=== PATIENT | female | born 1980 | race Caucasian/White ===

== ENCOUNTER 2017-03-16 12:00 | Emergency (ER) | payer BC ==
[2017-03-16] MEDS ORDERED: Albuterol/Ipratropium 3.0-0.5 MG/3 ML Neb Soln NEB ONE (12:47)
--- NOTE | 2017-03-16 12:48 | EDM.PDOC ---
ED HPI GENERAL MEDICAL PROBLEM - General Chief Complaint: Asthma Stated Complaint: ASTHMA ISSUES Time Seen by Provider: 03/16/17 12:17 Source of Information: Reports: Patient, Old Records (recent clinic visit) History Limitations: Reports: No Limitations - History of Present Illness INITIAL COMMENTS - FREE TEXT/NARRATIVE: 36-year-old female presents for evaluation treatment of asthma exacerbation. Patient reports that she's been ill with cough and cold-like symptoms for the last week. Current symptoms include a hoarse voice, nonproductive cough, shortness of breath, wheezing and a runny nose. She states that she saw her primary care provider on Tuesday. She was started on Brio and a steroid. She also has been using albuterol nebs at home. She reports that her symptoms are persisting despite these treatments. Chest Pain Score (Numeric/FACES): 3 - Related Data Allergies Allergy/AdvReac Type Severity Reaction Status Date / Time amoxicillin Allergy Cannot Verified 03/16/17 12:12 Remember tramadol Allergy Confusion Verified 03/16/17 12:12 Home Meds: Home Meds Albuterol [Proventil HFA] 1 inh INH ASDIRECTED 03/16/17 [History] Azithromycin [IJD: Azithromycin] 250 mg PO DAILY #6 tab 03/16/17 [Rx] Celecoxib 1 tab PO DAILY 03/16/17 [History] Prednisone [IJD: predniSONE] 20 mg PO WITHBREAKFAST #4 tab 03/16/17 [Rx] Past Medical History Respiratory History: Reports: Asthma Gastrointestinal History: Reports: Other (See Below) Other Gastrointestinal History: Crohns disease - Past Surgical History GI Surgical History: Reports: Colonoscopy Social & Family History - Tobacco Use Smoking Status *Q: Never Smoker - Caffeine Use Caffeine Use: Reports: Coffee, Soda, Tea - Recreational Drug Use Recreational Drug Use: No ED ROS GENERAL - Review of Systems Review Of Systems: See Below Constitutional: Denies: Fever HEENT: Reports: Rhinitis, Other (horse voice). Denies: Ear Pain Respiratory: Reports: Shortness of Breath, Cough Cardiovascular: Reports: Dyspnea on Exertion ED EXAM, GENERAL - Physical Exam Exam: See Below Exam Limited By: No Limitations General Appearance: Alert, WD/WN, No Apparent Distress Eye Exam: Bilateral Eye: Normal Inspection Ears: Normal External Exam, Normal Canal, Hearing Grossly Normal, Normal TMs Ear Exam: Bilateral Ear: TM normal Nose: Normal Inspection. No: Nasal Flaring Throat/Mouth: Normal Inspection, Normal Lips, Normal Voice, No Airway Compromise , Other (horse voice) Neck: Normal Inspection Respiratory/Chest: No Respiratory Distress, Wheezing (mild expiratory wheezes in the bilateral lung bases), Retractions (mild suprasternal retractions) Cardiovascular: Normal Peripheral Pulses, No Murmur, Tachycardia Neurological: Alert, Oriented, Normal Cognition Psychiatric: Normal Affect, Normal Mood Skin Exam: Warm, Dry, Normal Color Course - Vital Signs Last Recorded V/S: Last Vital Signs Temp 36.3 C 03/16/17 12:05 Pulse 100 03/16/17 19:30 Resp 18 03/16/17 19:30 BP 141/83 H 03/16/17 12:05 Pulse Ox 99 03/16/17 19:30 - Orders/Labs/Meds Labs: Laboratory Tests 03/16/17 03/16/17 Range/Units 13:00 13:00 WBC 17.13 H (3.98-10.04) K/mm3 RBC 4.28 (3.98-5.22) M/mm3 Hgb 13.7 (11.2-15.7) gm/L Hct 40.6 (34.1-44.9) % MCV 94.9 H (79.4-94.8) fl MCH 32.0 (25.6-32.2) pg MCHC 33.7 (32.2-35.5) g/dl RDW Std Deviation 41.3 (36.4-46.3) fL Plt Count 321 (182-369) K/mm3 MPV 9.1 L (9.4-12.3) fl Neut % (Auto) 86.3 H (34.0-71.1) % Lymph % (Auto) 9.3 L (19.3-51.7) % [place] % (Auto) 3.9 L (4.7-12.5) % Eos % (Auto) 0 L (0.7-5.8) Baso % (Auto) 0.1 (0.1-1.2) % Neut # (Auto) 14.77 H (1.56-6.13) K/mm3 Lymph # (Auto) 1.60 (1.18-3.74) K/mm3 [place] # (Auto) 0.67 H (0.24-0.36) K/mm3 Eos # (Auto) 0.00 L (0.04-0.36) K/mm3 Baso # (Auto) 0.02 (0.01-0.08) K/mm3 Manual Slide Review Abnormal smear Sodium 143 (136-145) mEq/L Potassium 3.4 L (3.5-5.1) mEq/L Chloride 105 (98-107) mEq/L Carbon Dioxide 26 (21-32) mEq/L Anion Gap 15.4 H (5-15) BUN 16 (7-18) mg/dL Creatinine 1.0 (0.55-1.02) mg/dL Est Cr Clr Drug Dosing 64.33 mL/min Estimated GFR (MDRD) > 60 (>60) mL/min BUN/Creatinine Ratio 16.0 (14-18) Glucose 128 H (74-106) mg/dL Calcium 9.8 (8.5-10.1) mg/dL Magnesium 1.8 (1.8-2.4) mg/dl Total Bilirubin 0.6 (0.2-1.0) mg/dL AST 19 (15-37) U/L ALT 25 (14-59) U/L Alkaline Phosphatase 59 (46-116) U/L Total Protein 8.3 H (6.4-8.2) g/dl Albumin 4.2 (3.4-5.0) g/dl Globulin 4.1 gm/dL Albumin/Globulin Ratio 1.0 (1-2) Meds: Medications Discontinued Medications Generic Name Dose Route Start Last Admin Trade Name Freq PRN Reason Stop Dose Admin Albuterol/Ipratropium 3 ml 03/16/17 12:47 03/16/17 13:03 Duoneb 3.0-0.5 Mg/3 Ml NEB 03/16/17 12:48 3 ml ONETIME ONE Administration - Radiology Interpretation Free Text/Narrative:: Chest: Two views of the chest were obtained. Comparison: Prior chest x-ray of 07/29/09. Heart size and mediastinum are within normal limits. Lungs are clear. Bony structures are unremarkable for the patient's age. Impression: 1. Nothing acute is identified on two-view chest x-ray. - Re-Assessments/Exams Free Text/Narrative Re-Assessment/Exam: 03/16/17 14:52 I reviewed the chest x-ray and lab results with the patient. I'll start her on a Z-Emerson. I will have her continue with the albuterol nebs, breo and prednisone. Patient reports she feels greatly improved after receiving the DuoNeb here in the ER. Lung sounds have improved. We will discharge her home at this time. She asked about increasing her breo. Encouraged her to try the azithromycin and continue on the prednisone. If she continues to have symptoms she could contact her primary care provider later this week to see if she should increase the Brio. Discharge instructions as documented. Departure - Departure Time of Disposition: 14:51 Disposition: Home, Self-Care 01 Condition: Good Clinical Impression: Bronchitis, Asthma - Discharge Information Prescriptions: Azithromycin [IJD: Azithromycin] 250 mg PO DAILY #6 tab Prednisone [IJD: predniSONE] 20 mg PO WITHBREAKFAST #4 tab Instructions: Asthma, Adult, [id number], Acute Bronchitis Referrals: Lyudmila Haney PA [Primary Care Provider] - Forms: ED Department Discharge Additional Instructions: Take the azithromycin as prescribed. 2 tabs on day 1 followed by 1 Days 2 through 5 for 5 Days and a 5 Total. Take the Prednisone As Prescribed. 1 Tab Twice a Day. Take a Total of 7 Days. take your breo and Albuterol as prescribed. Follow-Up with Your Primary Care Provider This Week or Next Week for Recheck of your Symptoms. Rest. Make Sure Drinking Plenty of Fluids. Please Return to the ER If your Symptoms Change or Worsen.
--- NOTE | 2017-03-17 08:06 | CR ---
Chest: Two views of the chest were obtained. Comparison: Prior chest x-ray of 07/29/09. Heart size and mediastinum are within normal limits. Lungs are clear. Bony structures are unremarkable for the patient's age. Impression: 1. Nothing acute is identified on two-view chest x-ray. Diagnostic code #1
== END 2017-03-16 15:00 | disposition home or self-care (01) ==
LOC: JD.ED 12:00
DX: J45.909 Unspecified asthma, uncomplicated (principal); Z88.1 Allergy status to other antibiotic agents; Z88.5 Allergy status to narcotic agent; Z79.899 Other long term (current) drug therapy
CPT/HCPCS: 36415; 71020; 71020-26; 80053; 83735; 85025; 94640; 99283; 99285-25

== ENCOUNTER 2019-01-07 22:05 | Emergency (ER) | payer BC ==
[2019-01-07] MEDS ORDERED: Loratadine 10 MG Tab PO ONE (22:32)
[2019-01-07] MEDS ORDERED: predniSONE 20 MG Tab PO ONE (22:32)
[2019-01-07] MEDS ORDERED: EPINEPHrine 1 MG/ML SDV IM ONE (22:32)
[2019-01-07] MEDS ORDERED: Famotidine 20 MG Tab PO ONE (22:32)
[2019-01-07] MEDS ORDERED: EPINEPHrine 1 MG/1 ML Amp ONE (22:45)
--- NOTE | 2019-01-07 22:51 | EDM.PDOC ---
ED HPI GENERAL MEDICAL PROBLEM - General Chief Complaint: Allergic Reaction Stated Complaint: POSS ALLERGIC REACTION Time Seen by Provider: 01/07/19 22:23 Source of Information: Reports: Patient, RN Notes Reviewed - History of Present Illness INITIAL COMMENTS - FREE TEXT/NARRATIVE: 38-year-old female that started breaking out in rash couple of hours ago. His rash upper and lower extremities as well as trunk. It is itchy. Fine earlier today. This came on about an hour or so after eating dinner this evening. She did cook with some fresh donn, garlic but nothing very unusual with a stirfry. She has reacted to medication in the past but not to food or any history of other allergies. She has no chest discomfort or difficulty breathing. No throat or facial swelling. She did take Benadryl at home about an hour ago without any meaningful relief. Bilateral Hand Pain Score (Numeric/FACES): 6 - Related Data Allergies Allergy/AdvReac Type Severity Reaction Status Date / Time amoxicillin Allergy Rash Verified 05/04/18 09:42 donn Allergy Rash Verified 01/07/19 22:11 tramadol AdvReac Confusion Verified 05/04/18 09:45 Home Meds: Home Meds Albuterol [Proventil HFA] 1 inh INH ASDIRECTED 03/16/17 [History] Celecoxib 1 tab PO DAILY 03/16/17 [History] Cetirizine HCl [Zyrtec] 10 mg PO DAILY 11/06/18 [History] L Gasseri/B Bifidum/B Longum [[place]achado' Colon Health Capsule] 1 tab PO ASDIRECTED 11/06/18 [History] Levonorgestrel [Mirena] 1 unit IUTERINE ASDIRECTED 11/06/18 [History] Past Medical History Respiratory History: Reports: Asthma Gastrointestinal History: Reports: Other (See Below) Other Gastrointestinal History: Crohns disease - Past Surgical History GI Surgical History: Reports: Colonoscopy Social & Family History - Tobacco Use Smoking Status *Q: Never Smoker - Caffeine Use Caffeine Use: Reports: Coffee, Soda, Tea - Recreational Drug Use Recreational Drug Use: No ED ROS ALLERGIC REACTION - Review of Systems Review Of Systems: See Below Constitutional: Denies: Fever, Chills, Diaphoresis HEENT: Denies: Sinus Problem, Throat Pain, Throat Swelling Respiratory: Denies: Shortness of Breath, Wheezing Cardiovascular: Denies: Chest Pain GI/Abdominal: Denies: Abdominal Pain, Nausea, Vomiting Musculoskeletal: Reports: No Symptoms Skin: Reports: Rash (Quite generalized), Erythema (Bilateral hands and wrists) Neurological: Reports: No Symptoms ED EXAM GENERAL NO PERIP PULSE - Physical Exam Exam: See Below General Appearance: Alert, Mild Distress Eye Exam: Bilateral Eye: PERRL, Other (No periorbital swelling, no conjunctival injection) Throat/Mouth: Normal Inspection, Other (No visible swelling) Head: No: Facial Swelling Neck: Supple Respiratory/Chest: No Respiratory Distress, Lungs Clear, Normal Breath Sounds. No: Rhonchi, Wheezing Cardiovascular: Regular Rate, Rhythm Neurological: Alert, Oriented, No Motor/Sensory Deficits Skin Exam: Warm, Dry, Erythema (There is erythema dorsal aspect of both hands and wrists), Rash (Mild scattered rash upper or lower extremities and also on her trunk.) Course - Vital Signs Last Recorded V/S: Last Vital Signs Temp 98.7 F 01/07/19 22:09 Pulse 89 01/07/19 22:09 Resp 16 01/07/19 22:09 BP 136/103 H 01/07/19 22:09 Pulse Ox 100 01/07/19 22:09 - Orders/Labs/Meds Meds: Medications Discontinued Medications Generic Name Dose Route Start Last Admin Trade Name Dorothy PRN Reason Stop Dose Admin Epinephrine HCl 0.3 mg 01/07/19 22:32 01/07/19 23:03 Adrenalin IM 01/07/19 22:33 Not Given ONETIME ONE Epinephrine HCl Confirm 01/07/19 22:45 01/07/19 23:03 Adrenalin Administered 01/07/19 22:46 Not Given Dose 1 mg .ROUTE .STK-MED ONE Epinephrine HCl 0.3 mg 01/07/19 22:52 01/07/19 22:47 Adrenalin IM 01/07/19 22:53 0.3 mg NOW ONE Administration Famotidine 20 mg 01/07/19 22:32 01/07/19 22:48 Pepcid PO 01/07/19 22:33 20 mg ONETIME ONE Administration Loratadine 10 mg 01/07/19 22:32 01/07/19 22:48 Claritin PO 01/07/19 22:33 10 mg ONETIME ONE Administration Prednisone 40 mg 01/07/19 22:32 01/07/19 22:49 Prednisone PO 01/07/19 22:33 40 mg ONETIME ONE Administration - Re-Assessments/Exams Free Text/Narrative Re-Assessment/Exam: 01/07/19 23:47 Feeling much better after meds given, erythema and rash is pretty well faded out completely, much less itchy. Discharge instructions as documented Departure - Departure Time of Disposition: 23:47 Disposition: Home, Self-Care 01 Condition: Fair Clinical Impression: Allergic urticaria - Discharge Information Referrals: Ashlee Downey PA-C [Primary Care Provider] - Forms: ED Department Discharge Additional Instructions: Continue Benadryl every 6-8 hours as needed for more severe rash or itching, I then also do suggest that you continue Claritin 10 mg daily for the next 2 or 3 days. Follow-up clinic as needed, return to ED as needed if symptoms worsening in any way. It would be a good idea to keep a log of what you did eat this evening and a time course for the rash and hives in case this ever happens again.
[2019-01-07] MEDS ORDERED: EPINEPHrine 1 MG/ML 30 ML MDV IM ONE (22:52)
== END 2019-01-07 23:58 | disposition home or self-care (01) ==
LOC: JD.ED 22:05
DX: L50.0 Allergic urticaria (principal); Z88.1 Allergy status to other antibiotic agents; Z88.8 Allergy status to other drugs, medicaments and biological substances; Z79.899 Other long term (current) drug therapy; Z79.51 Long term (current) use of inhaled steroids; Z91.018 Allergy to other foods
CPT/HCPCS: 96372; 99283; A9270; J0171